=== PATIENT | female | born 2000 | race Caucasian/White ===

== ENCOUNTER 2020-04-13 18:28 | Emergency (ER) | payer OTHER ==
[2020-04-13 18:39] VITALS: BP 110/65
--- NOTE | 2020-04-13 18:41 | ER Document Report ---
ED Medical Screen (RME) - General Chief Complaint: Abdominal Injury Stated Complaint: ABDOMINAL PAIN Time Seen by Provider: 04/13/20 18:32 Notes: Patient is a 20-year-old female who presents to the emergency department with abdominal cramping that radiates down to her vaginal area. Patient states that her last menstrual cycle was November 04. Patient states that she has not had any care due to moving here to [place] in the coronavirus started. Patient states that she has been standing all day and working. Denies any vaginal bleeding. Exam: Noticeably . light armored vehicle officer called the labor and delivery floor. The patient needs a confirmed ultrasound dates before she can go upstairs. I have greeted and performed a rapid initial assessment of this patient. A comprehensive ED assessment and evaluation of the patient, analysis of test results and completion of medical decision making process will be conducted by an additional ED providers. - Related Data Allergies/Adverse Reactions: No Known Allergies Allergy (Unverified 04/13/20 18:32) Physical Exam - Vital signs Vitals: Temp Pulse Resp BP Pulse Ox 98.6 F 104 H 16 110/65 98 04/13/20 18:31 04/13/20 18:31 04/13/20 18:31 04/13/20 18:31 04/13/20 18:31 Course - Vital Signs Vital signs: Temp Pulse Resp BP Pulse Ox 98.6 F 104 H 16 110/65 98 04/13/20 18:33 04/13/20 18:31 04/13/20 18:31 04/13/20 18:31 04/13/20 18:31
[2020-04-13 19:19] LABS: APPEARANCE,URINE CLOUDY; BILIRUBIN,URINE NEGATIVE (NEGATIVE); CALCIUM OXALATE CRYSTALS,URINE RARE /HPF; COLOR,URINE YELLOW; GLUCOSE, URINE NEGATIVE (NEGATIVE); KETONES,URINE NEGATIVE (NEGATIVE); LEUKOCYTE ESTERASE,URINE NEGATIVE (NEGATIVE); NITRITE,URINE NEGATIVE (NEGATIVE); PROTEIN,URINE NEGATIVE (NEGATIVE); URINE SPECIFIC GRAVITY 1.023
[2020-04-13 19:31] LABS: ABSOLUTE EOSINOPHILS # (AUTO) 0.1 10^3/uL (0.0-0.6); ABSOLUTE LYMPHOCYTES (AUTO) 1.7 10^3/uL (0.5-4.7); ABSOLUTE MONOCYTES (AUTO) 0.4 10^3/uL (0.1-1.4); ABSOLUTE NEUT (AUTO) 6.3 10^3/uL (1.7-8.2); BASOPHILS % (AUTO) 0.6 % (0-2); EOSINOPHILS % (AUTO) 0.8 % (0-6); HEMATOCRIT 31.5 % (36.0-47.0); LYMPHOCYTES % (AUTO) 19.6 % (13-45); MEAN CORPUSCULAR HEMOGLOBIN 29.6 pg (27.0-33.4); MEAN CORPUSCULAR HGB CONC 34.9 g/dL (32.0-36.0); MEAN CORPUSCULAR VOLUME 85 fl (80-97); MONOCYTES % (AUTO) 4.7 % (3-13); PLATELET COUNT 138 10^3/uL (150-450); RED BLOOD COUNT 3.71 10^6/uL (3.72-5.28); RED CELL DISTRIBUTION WIDTH 14.1 % (11.5-14.0); SEGMENTED NEUTROPHILS % (AUTO) 74.3 % (42-78); TOTAL CELLS COUNTED % (AUTO) 100 %; WHITE BLOOD COUNT 8.5 10^3/uL (4.0-10.5)
--- NOTE | 2020-04-13 19:33 | RADIOLOGY REPORT (SQ) ---
EXAM DESCRIPTION: U/S OB 14+ TA/1 GEST W/DOPPLER IMAGES COMPLETED DATE/TIME: 04/13/2020 7:21 pm REASON FOR STUDY: abdominal cramping; COMPARISON: None. TECHNIQUE: Static and Dynamic grayscale imaging performed of gravid uterus using transabdominal appr oach. Additional selected color Doppler and spectral images recorded. All stored on PACS. LIMITATIONS: None. FINDINGS: FETUSES SEEN:1 EGA: 23 week 6 day. Calculated using BPD,FL,HC,AC documented on images. Clinical dates 23 weeks 0 da y CICI: 08/04/2020. EFW: 593 grams PERCENTILE: 46%. ANYI: Adequate amount. PLACENTA: Anterior. GRADE: I PRESENTATION: Cephalic. HEART RATE: 145 beats per minute. ANATOMY: A full survey was not performed. No obvious anomalies. MATERNAL ADNEXA: Maternal ovaries not visualized. CERVICAL LENGTH: 2.4 cm. Closed. OTHER: No other significant finding. IMPRESSION: LIVING INTRAUTERINE . ESTIMATED GESTATIONAL AGE 23 WEEK 6 DAY. NO VISUALIZED ANOMALIES. Trimester of : Second trimester - 13 weeks 1 day to 27 weeks 6 days. TECHNICAL DOCUMENTATION: JOB ID: [id number] 2010 [employer]- All Rights Reserved Reading location - IP/workstation name: [email or web address]
--- NOTE | 2020-04-13 19:33 | ER Document Report ---
ED General - General Chief Complaint: Abdominal Cramping Stated Complaint: ABDOMINAL PAIN Time Seen by Provider: 04/13/20 18:32 Notes: 20-year-old female who is a G2, P1 with a last menstrual period on 11/04/2020 presents the emergency department stating that she has been having intermittent cramping lower abdominal pain since about 10:00 last night. Patient states the cramps come on about every 15 minutes and feels like contractions but have not been getting any worse or closer together. States she has had a small amount of yellow vaginal discharge for several days, denies any large gushes of fluid or any blood. Denies any vomiting or fever. Denies any dysuria. Has been taking vitamins, has not had any care. Did not have any complications with her prior , delivered at 41 weeks. - Related Data Allergies/Adverse Reactions: No Known Allergies Allergy (Unverified 04/13/20 18:32) Past Medical History - General Information source: Patient - Social History Smoking Status: Current Every Day Smoker Chew tobacco use (# tins/day): No Frequency of alcohol use: None Drug Abuse: None Family History: None Patient has homicidal ideation: No Review of Systems - Review of Systems Constitutional: No symptoms reported Gastrointestinal: See HPI Female Genitourinary: See HPI -: Yes All other systems reviewed and negative Physical Exam - Vital signs Vitals: Temp Pulse Resp BP Pulse Ox 98.6 F 104 H 16 110/65 98 04/13/20 18:31 04/13/20 18:31 04/13/20 18:31 04/13/20 18:31 04/13/20 18:31 Interpretation: Tachycardic - Notes Notes: GENERAL: Alert, interacts well. No acute distress. HEAD: Normocephalic, atraumatic EYES: Pupils equal, round and reactive to light, extraocular movements intact. ENT: Oral mucosa moist, tongue midline. NECK: Full range of motion, supple, trachea midline. LUNGS: Clear to auscultation bilaterally, no wheezes, rales or rhonchi, no respiratory distress. HEART: Regular rate and rhythm, no murmurs, gallops, rubs. ABDOMEN: Gravid, appropriate for dates, uterus is nontender to palpation, bowel sounds present in all 4 quadrants. EXTREMITIES: Moves all 4 extremities spontaneously, no edema, radial and dorsalis pedis pulses 2/4 bilaterally. No cyanosis. NEUROLOGICAL: Alert and oriented x3, normal speech. PSYCH: Normal mood, normal affect. SKIN: Warm, Dry, normal turgor. Course - Re-evaluation Re-evalutation: 04/13/20 20:00 CBC shows mild anemia with a hemoglobin 11.0, platelets slightly low at 138, chemistries still pending, urinalysis shows small blood but no signs of infection, OB ultrasound shows a 23-week 6-day fetus with a heartbeat of 145 bpm, cervical length is 2.4 cm and it is closed. Discussed patient with labor and delivery, they agree with completing her work- up for lower abdominal pain in on labor and delivery. Patient will be discharged from the emergency department and sent to directly to labor and delivery. - Vital Signs Vital signs: Temp Pulse Resp BP Pulse Ox 98.6 F 104 H 16 110/65 98 04/13/20 18:33 04/13/20 18:31 04/13/20 18:31 04/13/20 18:31 04/13/20 18:31 - Laboratory Result Diagrams: 04/13/20 19:12 04/13/20 19:12 Laboratory results interpreted by me: 04/13/20 04/13/20 19:04 19:12 RBC 3.71 L Hgb 11.0 L Hct 31.5 L RDW 14.1 H Plt Count 138 L Urine Blood SMALL H Urine Urobilinogen 4.0 H Discharge - Discharge Clinical Impression: related bilateral lower abdominal pain, antepartum Condition: Stable Disposition: LABOR CHECK Additional Instructions: Please go directly upstairs to labor and delivery for further evaluation for your lower abdominal pain in .
[2020-04-13 19:52] LABS: ALBUMIN 3.4 g/dL (3.5-5.0); ALKALINE PHOSPHATASE 69 U/L (38-126); ANION GAP 6 (5-19); ASPARTATE AMINO TRANSFERASE 10 U/L (14-36); BILIRUBIN,TOTAL 0.2 mg/dL (0.2-1.3); BLOOD UREA NITROGEN 11 mg/dL (7-20); CALCIUM 8.8 mg/dL (8.4-10.2); CARBON DIOXIDE 26 mmol/L (22-30); CHLORIDE 103 mmol/L (98-107); GLUCOSE 86 mg/dL (75-110); POTASSIUM 3.6 mmol/L (3.6-5.0); TOTAL PROTEIN 6.2 g/dL (6.3-8.2)
== END 2020-04-13 19:58 | disposition admitted as inpatient to this hospital (09) ==
LOC: ER 18:28
DX: O26.892 Other specified pregnancy related conditions, second trimester (principal); R10.31 Right lower quadrant pain; R10.32 Left lower quadrant pain; O99.332 Smoking (tobacco) complicating pregnancy, second trimester; Z3A.23 23 weeks gestation of pregnancy
CPT/HCPCS: 36415; 76805; 80053; 81001; 83690; 84702; 85025; 86900; 86901; 93976; 99284

== ENCOUNTER 2020-04-13 20:07 | Outpatient (CLI) | payer OTHER ==
[2020-04-13] MEDS ORDERED: CEFTRIAXONE INJ 1000 MG VIAL ONE (20:45)
[2020-04-13] MEDS ORDERED: CEFTRIAXONE 1 GM/D5W RTU 1 GM/50 ML RTUPB IV ONE (22:00)
[2020-04-14] MEDS ORDERED: CEFTRIAXONE 1 GM/D5W RTU 1 GM/50 ML RTUPB IV SCH (22:00)
== END 2020-04-13 21:22 | disposition home or self-care (01) ==
LOC: LC 20:07
PROVIDERS: ATTEND Obstetrics & Gynecology Gynecology
DX: Z34.93 Encounter for supervision of normal pregnancy, unspecified, third trimester (principal); Z3A.28 28 weeks gestation of pregnancy
CPT/HCPCS: 59899; J0696

== ENCOUNTER 2020-07-08 20:59 | Outpatient (CLI) | payer OTHER, MEDICAID ==
[2020-07-08 21:53] LABS: APPEARANCE,URINE CLEAR; BILIRUBIN,URINE NEGATIVE (NEGATIVE); COLOR,URINE STRAW; GLUCOSE, URINE NEGATIVE (NEGATIVE); KETONES,URINE NEGATIVE (NEGATIVE); LEUKOCYTE ESTERASE,URINE NEGATIVE (NEGATIVE); NITRITE,URINE NEGATIVE (NEGATIVE); PROTEIN,URINE NEGATIVE (NEGATIVE); URINE SPECIFIC GRAVITY 1.005; UROBILINOGEN,URINE NEGATIVE mg/dL (<2.0)
[2020-07-08 22:05] LABS: BACTERIA (WET MOUNT) 4+ BACTERIA SEEN; EPITHELIALS (WET MOUNT) 3+ EPITHELIALS SEEN; RBCS (WET MOUNT) RARE RBCS SEEN; T.VAGINALIS (WET MOUNT) NO TRICHOMONAS SEEN; WBCS (WET MOUNT) 3+ WBCS SEEN; YEAST (WET MOUNT) NO YEAST SEEN
[2020-07-08 22:16] LABS: URINE AMPHETAMINES SCREEN NEGATIVE; URINE BARBITURATES SCREEN NEGATIVE; URINE BENZODIAZEPINES SCREEN NEGATIVE; URINE COCAINE SCREEN NEGATIVE; URINE MARIJUANA (THC) SCREEN NEGATIVE; URINE METHADONE SCREEN NEGATIVE; URINE PHENCYCLIDINE SCREEN NEGATIVE
[2020-07-08 23:37] LABS: CHLAM PCR NOT DETECTED (NOT DETECT)
--- NOTE | 2020-07-10 07:17 | Non Stress Test Report ---
Non Stress Test Datetime Report Generated by CPN: 07/10/2020 07:17 DEMOGRAPHIC EGA NST: 35.5 INDICATION Indication for Study (NST) Other: lc MONITORING Monitor Explained: Monitor Explained; Test Explained; Patient Verbalized Understanding Time on Monitor: 07/08/2020 21:39 Time off Monitor: 07/10/2020 23:08 NST Duration: 2969 NST INTERVENTIONS NST Interventions: PO Hydration; Reposition Patient Physician Notified NST: Dr Jerry BABY A: [id number] BABY A Movement : Present FHR Baseline : 125 Accelerations : 15X15 Decelerations : None Variability : Moderate 6-25bpm NST Review: Meets Criteria for Reactive NST NST Review and Verified By : Tisha Bellavance RN NST Results: Reactive NST REPORT Report Trigger: Send Report
== END 2020-07-08 23:15 | disposition home or self-care (01) ==
LOC: LC 20:59
PROVIDERS: ATTEND Obstetrics & Gynecology Gynecology
DX: Z34.93 Encounter for supervision of normal pregnancy, unspecified, third trimester (principal)
CPT/HCPCS: 59025; 80307; 81001; 87210; 87491; 87591

== ENCOUNTER 2020-08-02 08:10 | Inpatient (IN) | payer OTHER, MEDICAID ==
[2020-08-02 10:52] LABS: APPEARANCE,URINE SLIGHTLY-CLOUDY; BILIRUBIN,URINE NEGATIVE (NEGATIVE); COLOR,URINE YELLOW; GLUCOSE, URINE NEGATIVE (NEGATIVE); KETONES,URINE NEGATIVE (NEGATIVE); LEUKOCYTE ESTERASE,URINE SMALL (NEGATIVE); NITRITE,URINE NEGATIVE (NEGATIVE); PROTEIN,URINE NEGATIVE (NEGATIVE); URINE SPECIFIC GRAVITY 1.009; UROBILINOGEN,URINE NEGATIVE mg/dL (<2.0)
[2020-08-02 11:08] LABS: URINE AMPHETAMINES SCREEN NEGATIVE; URINE BARBITURATES SCREEN NEGATIVE; URINE BENZODIAZEPINES SCREEN NEGATIVE; URINE COCAINE SCREEN NEGATIVE; URINE MARIJUANA (THC) SCREEN NEGATIVE; URINE METHADONE SCREEN NEGATIVE; URINE PHENCYCLIDINE SCREEN NEGATIVE
[2020-08-02] MEDS: RINGERS SOLUTION,LACTATED 1,000 ML IV PRN ×2 (11:45→13:52)
[2020-08-02] MEDS ORDERED: OXYTOCIN/0.9 % SODIUM CHLORIDE 30 UNIT/500 ML RTUINJ ONE (12:12)
[2020-08-02] MEDS ORDERED: MISOPROSTOL 0.2 MG TABLET ONE (12:12)
[2020-08-02] MEDS ORDERED: LIDOCAINE 1% INJ-PF (10 MG/ML) 30 ML SDV ONE (12:12)
[2020-08-02] MEDS ORDERED: OXYTOCIN 10 UNIT/ML VIAL ONE (12:12)
--- NOTE | 2020-08-02 12:22 | Admission Physical ---
Datetime Report Generated by CPN: 08/02/2020 12:22 CURRENT ADMISSION Chief Complaint: Uterine Contractions Indication for Induction: Not Applicable Admit Impression : Term, Intrauterine ; Active Labor Admit Plan: Admit to Unit; Initiate Labor Protocol ALLERGIES Medication Allergies: No Medication Allergies: No Known Allergies (08/02/2020) Latex: Unknown Food Allergies: no Environmental Allergies: no OBSTETRICAL HISTORY EDC: 08/07/2020 00:00 : 2 Para: 1 Term: 1 : 0 SAB: 0 IAB: 0 Ectopic: 0 Livin Cesareans: 0 VBACs: 0 Multiple Births: 0 Gestational Diabetes: Yes Rh Sensitization: No Incompetent Cervix: No TABATHA: No Infertility: No ART Treatment: No Uterine Anomaly: No IUGR: No Hx Previous C/S: No Macrosomia: No Hx Loss/Stillborn: No PIH: No Hx : No Placenta Previa/Abruption: No Depression/PP Depression: Yes PTL/PROM: No Post Hemorrhage: No Current Procedures: Ultrasound; NST Obstetrical History Comments: G1- 2014, , PPD G2- Current, GDM SEE RECORDS Alcohol: No Marijuana : No Cocaine: No Other Illicit Drugs: No Cigarette Frequency: < 5 per day Advised to Stop: Yes MEDICAL HISTORY Diabetes: No Diabetes Type: Gestational Diabetes Blood Transfusion: No Pulmonary Disease (Asthma, TB): No Breast Disease: No Hypertension: No Dry Chain Puller Surgery: No Heart Disease: No Hosp/Surgery: Yes Autoimmune Disorder: No Anesthetic Complications: No Kidney Disease: No Abnormal Pap Smear: No Neuro/Epilepsy: No Psychiatric Disorders: No Other Medical Diseases: No Hepatitis/Liver Disease: No Significant Family History: No Varicosities/Phlebitis: No Trauma/Violence : No Thyroid Dysfunction: No Medical History Comments: Childbirth PPD and hospitalization INFECTIOUS HISTORY Gonorrhea: No Genital Herpes: No Chlamydia: No Tuberculosis: No Syphilis: No Hepatitis: No HIV/AIDS Exposure: No Rash or Viral Illness: No HPV: No PHYSICAL EXAM General: Normal HEENT: Normal Neurologic: Normal Thyroid: Normal Heart: Normal Lungs: Normal Breast: Deferred Back: Normal Abdomen: Normal Genitourinary Exam: Normal Extremities: Normal DTRs: Normal Pelvic Type: Adequate Vital Signs: Reviewed VAGINAL EXAM Dilatation: 5 Effacement: 70 Station: -3 MEMBRANES Pooling: Negative Membranes: Intact FETUS A EGA: 39.2 Monitoring: External US FHR- Baseline: 120 Variability: Moderate 6-25bpm FHR Category: Category I Estimated Weight (gm): 3700 Presentation: Vertex Admit Comment: Admit for labor PLANS FOR LABOR AND DELIVERY Labor and Delivery: None Pain Management: Natural; Medications; Epidural Feeding Preference: Both Benefit of Breast Feed Discussed: Yes Circumcision: Yes INFORMED CONSENT Signature: with User ID: [email or web address]
[2020-08-02 12:32] LABS: ABSOLUTE BASOPHILS # (AUTO) 0.1 10^3/uL (0.0-0.2); ABSOLUTE LYMPHOCYTES (AUTO) 1.6 10^3/uL (0.5-4.7); ABSOLUTE MONOCYTES (AUTO) 0.5 10^3/uL (0.1-1.4); ABSOLUTE NEUT (AUTO) 7.7 10^3/uL (1.7-8.2); BASOPHILS % (AUTO) 0.5 % (0-2); EOSINOPHILS % (AUTO) 0.4 % (0-6); HEMATOCRIT 33.3 % (36.0-47.0); HEMOGLOBIN 11.1 g/dL (12.0-15.5); LYMPHOCYTES % (AUTO) 16.4 % (13-45); MEAN CORPUSCULAR HEMOGLOBIN 26.5 pg (27.0-33.4); MEAN CORPUSCULAR HGB CONC 33.4 g/dL (32.0-36.0); MEAN CORPUSCULAR VOLUME 79 fl (80-97); MONOCYTES % (AUTO) 5.3 % (3-13); PLATELET COUNT 118 10^3/uL (150-450); RED CELL DISTRIBUTION WIDTH 15.5 % (11.5-14.0); SEGMENTED NEUTROPHILS % (AUTO) 77.4 % (42-78); TOTAL CELLS COUNTED % (AUTO) 100 %; WHITE BLOOD COUNT 9.9 10^3/uL (4.0-10.5)
[2020-08-02] MEDS ORDERED: EPHEDRINE SULFATE INJ 50 MG/1 ML AMPULE ONE (14:03)
[2020-08-02] MEDS ORDERED: FENTANYL/BUPIVACAINE/NS/PF 300 MCG/150 ML RTUINJ EPI ONE (14:04)
[2020-08-02] MEDS ORDERED: ROPIVACAINE HCL 0.2% INJ/PF (2 MG/ML) 20 ML SDV ONE (14:04)
--- NOTE | 2020-08-02 16:06 | Warning Signs in Babies ---
VOD Warning Signs Datetime Report Generated by N: 08/02/2020 16:05 VOD#608 -Warning Signs in Babies: Viewed with Parent(s)/Family (08/02/2020 16:05:Dylan Garces RN)
--- NOTE | 2020-08-02 16:07 | Warning Signs in Babies ---
VOD Warning Signs Datetime Report Generated by [facility]: 08/02/2020 16:07 VOD#608 -Warning Signs in Babies: Viewed with Parent(s)/Family (08/02/2020 16:05:Dylan Garces RN)
[2020-08-02] MEDS ORDERED: PROMETHAZINE HCL INJ 25 MG/1 ML VIAL IV PRN (20:02)
[2020-08-02] MEDS ORDERED: DIBUCAINE 1% OINTMENT 28 GM TP PRN (20:02)
[2020-08-02] MEDS ORDERED: PROMETHAZINE HCL 25 MG TABLET PO PRN (20:02)
[2020-08-02] MEDS ORDERED: GLYCERIN/WITCH HAZEL LEAF 1 EACH MED..WIPE TP PRN (20:02)
[2020-08-02] MEDS ORDERED: PROMETHAZINE HCL 25 MG SUPP.RECT PR PRN (20:02)
[2020-08-02] MEDS ORDERED: ACETAMINOPHEN 650 MG SUPP.RECT PR PRN (20:02)
[2020-08-02] MEDS ORDERED: BENZOCAINE/MENTHOL AEROSOL SPRAY 56 ML TOP PRN (20:02)
[2020-08-02] MEDS ORDERED: DIPHENHYDRAMINE HCL 25 MG CAPSULE PO PRN (20:02)
[2020-08-02] MEDS ORDERED: MEASLES,MUMPS&RUBELLA VACC/PF 0.5 ML VIAL SUBCUT PRN (20:02)
[2020-08-02] MEDS ORDERED: MAGNESIUM HYDROXIDE SUSP 30 ML UDCUP PO PRN (20:02)
[2020-08-02] MEDS ORDERED: DIPH/PERTUSS(ACELL)/TETANUS VAC/PF 0.5 ML SYR (>=10YO) IM PRN (20:02)
[2020-08-02] MEDS ORDERED: ZOLPIDEM TARTRATE 5 MG TABLET PO PRN (20:02)
[2020-08-02] MEDS ORDERED: NA PHOS,M-B/NA PHOS,DI-BA (ADULT) 133 ML ENEMA PR PRN (20:02)
[2020-08-02] MEDS ORDERED: OXYTOCIN/0.9 % SODIUM CHLORIDE 30 UNIT/500 ML RTUINJ IV PRN (20:02)
[2020-08-02] MEDS ORDERED: PSEUDOEPHEDRINE HCL 30 MG TABLET PO PRN (20:02)
[2020-08-02] MEDS ORDERED: ACETAMINOPHEN WITH CODEINE #3 TABLET PO PRN (20:02)
--- NOTE | 2020-08-02 21:31 | Delivery Summary ---
Del Sum A-C Datetime Report Generated by CPN: 08/02/2020 21:30 DELIVERY PERSONNEL DELIVERY PERSONNEL: [id number] Delivery Doctor:: Porsha Cerda MD Labor and Delivery Nurse:: Dylan Garces RNelectrical discharge machine operator Nurse:: Lucille Renee RN Nursery Nurse:: Katia Li RN Manager Clinic/MAGNETIC RESONANCE TECHNOLOGIST: ElizabethST Hermelindo Manager Clinic/MAGNETIC RESONANCE TECHNOLOGIST: Rachelher Gutierrez ST MATERNAL INFORMATION Delivery Anesthesia: Epidural Medications After Delivery: Pitocin 30 Units in 500ml NS/D5W Estimated Blood Loss (ml): 250 Delivery QBL: 50 Maternal Complications: None LABOR SUMMARY EDC: 08/07/2020 00:00 No. Babies in Womb: 1 Attempted: No Labor Anesthesia: Epidural LABOR INFORMATION Reason for Induction: Not Applicable Onset of Labor: 08/02/2020 11:14 Complete Dilatation: 08/02/2020 19:04 Oxytocin: N/A Group B Beta Strep: negative Antibiotics # of Doses: 0 Steroids Given: None Reason Steroids Not Administered: Not Applicable MEMBRANES Membranes Rupture Method: Artificial Rupture of Membranes: 08/02/2020 16:31 Length of Rupture (hr): 3.27 Amniotic Fluid Color: Clear Amniotic Fluid Amount: Moderate Amniotic Fluid Odor: None STAGES OF LABOR Stage 1 hr: 7 Stage 1 min: 50 Stage 2 hr: 0 Stage 2 min: 43 Stage 3 hr: 0 Stage 3 min: 8 Total Time in Labor hr: 8 Total Time in Labor min: 41 VAGINAL DELIVERY Episiotomy: None Laceration #1: None Laceration Extension #1: N/A Laceration #2: None Laceration Extension #2: N/A Laceration #3: None Laceration Extension #3: N/A Laceration Repair: Not Applicable Sponge Count Correct: N/A Sharps Count Correct: N/A CSECTION DELIVERY Primary Indication: N/A Secondary Indication: N/A CSection Urgency: N/A CSection Incidence: N/A Labor: N/A Elective: N/A CSection Incision: N/A BABY A INFORMATION Infant Delivery Date/Time: 08/02/2020 19:47 Method of Delivery: Vaginal Nurse Controlled Delivery: No Born in Route : No : N/A Forceps: N/A Vacuum Extraction: N/A Shoulder Dystocia : No PRESENTATION/POSITION BABY A Presentation: Cephalic Cephalic Presentation: Vertex Vertex Position: Left Occipital Anterior Breech Presentation: N/A PLACENTA INFORMATION BABY A Placenta Delivery Time : 08/02/2020 19:55 Placenta Method of Delivery: Spontaneous Placenta Status: Delivered SCORES BABY A Heart Rate 1 min: >100 bpm Resp Effort 1 min: Good Cry Reflex Irritability 1 min: Cough or Sneeze or Pulls Away Muscle Tone 1 min: Active Motion Color 1 min: Blue/Pale Resuscitation Effort 1 min: Tactile Stimulation SCORE 1 MIN: 8 Heart Rate 5 min: >100 bpm Resp Effort 5 min: Good Cry Reflex Irritability 5 min: Cough or Sneeze or Pulls Away Muscle Tone 5 min: Active Motion Color 5 min: Body Peterman, Extremities Blue Resuscitation Effort 5 min: N/A SCORE 5 MIN: 9 INFANT INFORMATION BABY A Gestational Age at Delivery: 39.2 Gestational Status: Full Term- 39- 40.6 Weeks Outcome : Liveborn Condition : Stable Sex: Male IDENTIFICATION BABY A Verification Date/Time: 08/02/2020 20:46 ID Band Number: [id number] Mother's Name Verified: Yes RN Verifying : Fran Ziegler RN/A. Omarman RN WEIGHT/LENGTH BABY A Infant Birthweight (gm): 3575 Infant Weight (lb): 7 Infant Weight (oz): 14 Length (in): 20.00 Length (cm): 50.80 CORD INFORMATION BABY A No. Cord Vessels: 3 Nuchal Cord : N/A Cord Blood Taken: Yes-For Eval (Mom's Blood Type - or O+) Suction: None ASSESSMENT BABY A Complications: None Physical Findings at Delivery: Other Physical Findings- Other: see nursery nurse assessment Respirations: Appears Normal Skin to Skin: Yes Crossbar Switch Adjuster/ALS Called : No Care By: RiteshBharath Jen RN Transferred To: Remains with Mother BABY B INFORMATION : N/A SIGNATURES Signature: with User ID: [email or web address]
--- NOTE | 2020-08-02 21:31 | Birth Certificate Data ---
Cert Data Datetime Report Generated by CPN: 08/02/2020 21:30 CERTIFICATE DATA 47a. Care: No (07/08/2020 21:34:Cecille Stuart RN) 47b. Date of First Visit: 04/17/2020 00:00 (07/08/2020 21:34:Cecille Stuart RN) 47c. Date of Last Visit: 07/18/2020 00:00 (07/08/2020 21:34:Cecille Stuart RN) 47d. Number of Visits: 7 (07/08/2020 21:34:Cecille Stuart RN) 48a. Number of Prev Live Births: 1 (07/08/2020 21:34:Dylan Garces RN) 48b. Now Livin (07/08/2020 21:34:JOE Toscano) 48c. Live Births Now : 0 (07/08/2020 21:34:QS system process) 48e. Losses: 0 (07/08/2020 21:34:Dylan Garces RN) RISK FACTORS IN THIS 49a. Diabetes: No (07/08/2020 21:34:Dylan Garces RN) Type of Diabetes: Gestational Diabetes (07/08/2020 21:34:Dylan Garces RN) 49b. Hypertension: No (07/08/2020 21:34:Dylan Garces RN) 49c. Previous Births: 0 (07/08/2020 21:34:JOE Toscano) 49d. Stillborns: No (07/08/2020 21:34:Dylan Garces RN) 49d. IUGR: No (07/08/2020 21:34:Dylan Garecs RN) 49e. Infertility Treatment: No (07/08/2020 21:34:Dylan Garces RN) 49f. Previous Cesareans: 0 (07/08/2020 21:34:Dylan Garces RN) Mother's Height 50b. Height Inches: 61 (08/02/2020 08:24:QS system process) Mother's Weight 51a. Pre- Weight (lbs): 131 (07/08/2020 21:34:Cecille Stuart RN) 51b. Weight at Delivery (lbs): 156 (08/02/2020 08:24:QS system process) 52. Dt Last Normal Menses Began: 11/01/2019 00:00 (07/08/2020 21:34:JOE Toscano) Infections Present/Treated 53a. Gonorrhea: No (07/08/2020 21:34:Dylan Garces RN) Results this Hospital Visit : Negative (07/08/2020 21:34:JOE Toscano) 53b. Syphilis: No (07/08/2020 21:34:Dylan Garces RN) 53c. Chlamydia: No (07/08/2020 21:34:Dylan Garces RN) Results this Hospital Visit: Negative (07/08/2020 21:34:JOE Toscano) 53d. Hepatitis B: No (07/08/2020 21:34:Dylan Garces RN) Results this Hospital Visit: Negative (07/08/2020 21:34:JOE Toscano) 53e. Hepatitis C: Negative (07/08/2020 21:34:Dylan Garces RN) 53h. Mother Tested for HBsAG: Yes (07/08/2020 21:34:Dylan Garces RN) 53i. Date Tested: 04/17/2020 00:00 (07/08/2020 21:34:Dylan Garces RN) 53j. Test Result: Negative (07/08/2020 21:34:JOE Toscano) Obstetric Procedures 54a, b, c. Obstetric Procedures: Ultrasound; NST (07/08/2020 21:34:Dylan Garces RN) Cigarette Smoking 55a. Packs: 1 (07/08/2020 21:34:Dylan Garces RN) 55b. 1st Trimester of Preg- Ci (07/08/2020 21:34:Dylan Garces RN) 55b. Packs: 0 (07/08/2020 21:34:Dylan Garces RN) 55c. 2nd Trimester of Preg- Ci (07/08/2020 21:34:Dylan Garces RN) 55c. Packs: 0 (07/08/2020 21:34:Dylan Garces RN) 55d. 3rd Trimester of Preg- Ci (07/08/2020 21:34:Dylan Garces RN) 55d. Packs: 0 (07/08/2020 21:34:Dylan Garces RN) Onset of Labor 56a. PROM >12 Hrs: 3.27 (07/08/2020 21:34:QS system process) 56b. Precipitous Labor <3 Hrs: 8 (07/08/2020 21:34:QS system process) 56c. Prolonged Labor > 20 Hrs: 8 (07/08/2020 21:34:QS system process) 57a. Induction of Labor: N/A (07/08/2020 21:34:Cecille Stuart RN) 57c. Non-Vertex Presentation A: Vertex (07/08/2020 21:34:Dylan Garces RN) 57d. Steroids - Lung Mat: None (07/08/2020 21:34:Porsha Cerda MD ([facility])) 57d. Steroids - Lung Mat: Not Applicable (07/08/2020 21:34:Porsha Cerda MD ([facility])) 57g. Moderate/Heavy Meconium: Clear (08/02/2020 16:31:Dylan Garces RN) 57h. Intolerance of Labor: N/A (07/08/2020 21:34:Cecille Stuart RN) : N/A (07/08/2020 21:34:Cecille Stuart RN) 57i. Epidural/Spinal Anesthesia: Epidural (07/08/2020 21:34:Cecille Stuart RN) Method of Delivery 58a. Forceps - Unsuccessful A: N/A (07/08/2020 21:34:Dylan Garces RN) 58b. Vacuum - Unsuccessful A: N/A (07/08/2020 21:34:Dylan Garces RN) 58c. Presentation at 58c. Presentation at - A : Vertex (07/08/2020 21:34:Dylan Garces RN) 58c. Presentation at - A : N/A (07/08/2020 21:34:Dylan Garces RN) 58c. Presentation at - A : Cephalic (07/08/2020 21:34:Dylan Garces RN) Final Route and Method of Del 58d. Baby A Route/Delivery: Vaginal (08/02/2020 19:47:Dylan Garces RN) 58e. Trial of Labor Attempted: No (07/08/2020 21:34:Cecille Stuart RN) 58e. Trial of Labor Attempted A: N/A (07/08/2020 21:34:Dylan Garces RN) 58e. Trial of Labor Attempted B: N/A (07/08/2020 21:34:Cecille Stuart RN) Maternal Morbidity 59b. 3rd or 4th Degree Lacs: None (07/08/2020 21:34:Cecille Stuart RN) 59b. 3rd or 4th Degree Lacs: N/A (07/08/2020 21:34:Dylan Garces RN) Birthweight Baby A: 3575 (07/08/2020 21:34:Marcella Ziegler RN) 60a. Pounds : 7 (07/08/2020 21:34:QS system process) 60b. Ounces: 14 (07/08/2020 21:34:QS system process) 61. GA at Delivery Baby A: 39.2 (07/08/2020 21:34:Dylan Garces RN) : Full Term- 39- 40.6 Weeks (07/08/2020 21:34:QS system process) 62a. 5 Minute Baby A: 9 (07/08/2020 21:34:QS system process)
[2020-08-02] MEDS: FAMOTIDINE 20 MG TABLET PO SCH (23:54)
[2020-08-02] MEDS: IBUPROFEN 800 MG TABLET PO SCH (23:54)
[2020-08-03] MEDS: IBUPROFEN 800 MG TABLET PO SCH ×3 (06:35→21:36)
[2020-08-03] MEDS: ACETAMINOPHEN WITH CODEINE #3 TABLET PO PRN ×2 (06:44→19:49)
[2020-08-03 07:36] LABS: MEAN CORPUSCULAR HEMOGLOBIN 26.4 pg (27.0-33.4); MEAN CORPUSCULAR HGB CONC 33.4 g/dL (32.0-36.0); MEAN CORPUSCULAR VOLUME 79 fl (80-97); PLATELET COUNT 105 10^3/uL (150-450); WHITE BLOOD COUNT 11.1 10^3/uL (4.0-10.5)
[2020-08-03] MEDS: SENNOSIDES/DOCUSATE 8.6-50 MG 1 EACH TABLET PO SCH (09:26)
[2020-08-03] MEDS: FERROUS SULFATE 325 MG TABLET PO SCH ×2 (09:26→18:21)
[2020-08-03] MEDS: DOCUSATE SODIUM 100 MG CAPSULE PO SCH ×2 (09:26→18:21)
[2020-08-03] MEDS: FAMOTIDINE 20 MG TABLET PO SCH ×2 (09:26→21:36)
[2020-08-03] MEDS: PRENATAL VITAMIN W DHA CAPSULE PO SCH (09:26)
--- NOTE | 2020-08-03 11:30 | PDOC PROGRESS REPORT ---
Subjective-OB Progress Note for:: 08/03/20 Subjective: Pt resting, reports light bleeding, reg diet and denies difficulty voiding. Physical Exam (OB) Vital Signs: Temp Pulse Resp BP Pulse Ox 98.0 F 83 18 97/64 L 99 08/03/20 09:53 08/03/20 07:30 08/03/20 07:30 08/03/20 07:30 08/03/20 07:30 Intake & Output 08/02/20 08/03/20 08/04/20 06:59 06:59 06:59 Intake Total 1265 Balance 1265 Weight 71.4 kg - Maternal Morbidity 59. Maternal Morbidity (serious complications experinced by the mother associated with labor and delivery: None of the above - Lochia Lochia Amount: Small 10-25 ml Lochia Color: Rubra/Red - Abdomen Description: Soft Hernia Present: No Fundal Description: Firm, Midline Fundal Height: u/3 - u/4 Objective-Diagnostic Laboratory: 08/03/20 06:41 08/02/20 08/02/20 08/03/20 12:24 12:24 06:41 WBC 9.9 11.1 H RBC 4.20 3.80 Hgb 11.1 L 10.0 L Hct 33.3 L 30.0 L MCV 79 L 79 L MCH 26.5 L 26.4 L MCHC 33.4 33.4 RDW 15.5 H 16.0 H Plt Count 118 L 105 L Seg Neutrophils % 77.4 Blood Type O POSITIVE Antibody Screen NEGATIVE Assessment and Plan(PN) - Assessment and Plan (1) (spontaneous vaginal delivery) Is this a current diagnosis for this admission?: Yes (2) Active labor at term Is this a current diagnosis for this admission?: Yes - Time Spent with Patient Time with patient: Less than 15 minutes Medications reviewed and adjusted accordingly: Yes - Disposition Anticipated Discharge Disposition: Home, Self Care Anticipated Discharge Timeframe: within 24 hours
[2020-08-04] MEDS: IBUPROFEN 800 MG TABLET PO SCH ×2 (05:14→13:19)
[2020-08-04 07:36] VITALS: BP 107/69
[2020-08-04] MEDS: SENNOSIDES/DOCUSATE 8.6-50 MG 1 EACH TABLET PO SCH (09:17)
[2020-08-04] MEDS: FAMOTIDINE 20 MG TABLET PO SCH (09:17)
[2020-08-04] MEDS: FERROUS SULFATE 325 MG TABLET PO SCH (09:17)
[2020-08-04] MEDS: PRENATAL VITAMIN W DHA CAPSULE PO SCH (09:17)
[2020-08-04] MEDS: DOCUSATE SODIUM 100 MG CAPSULE PO SCH (09:17)
--- NOTE | 2020-08-04 09:58 | PDOC PROGRESS REPORT ---
Subjective-OB Progress Note for:: 08/04/20 Subjective: Doing well, no c/o, ready to go home, bottle feeding, encouraged to wear bra, eating and drinking, ambulating Physical Exam (OB) Vital Signs: Temp Pulse Resp BP Pulse Ox 98.4 F 76 16 107/69 100 08/04/20 07:30 08/04/20 07:16 08/04/20 07:16 08/04/20 07:16 08/04/20 07:16 Intake & Output 08/03/20 08/04/20 08/05/20 06:59 06:59 06:59 Intake Total 1265 240 Balance 1265 240 Weight 71.4 kg - PIH/Pre-Eclampsia DTR's: 1 + Clonus: Negative Headache: Absent Epigastric Pain: No Visual Changes: No - Maternal Morbidity 59. Maternal Morbidity (serious complications experinced by the mother associa gayle with labor and delivery: None of the above - Lochia Lochia Amount: Scant < 10 ml Lochia Color: Rubra/Red - Abdomen Description: Soft Hernia Present: No Fundal Description: Firm, Midline Fundal Height: u/u - u/2 Objective-Diagnostic Laboratory: 08/03/20 06:41 Assessment and Plan(PN) - Assessment and Plan (1) (spontaneous vaginal delivery) Is this a current diagnosis for this admission?: Yes (2) Active labor at term Is this a current diagnosis for this admission?: Yes - Time Spent with Patient Time with patient: Less than 15 minutes Medications reviewed and adjusted accordingly: Yes - Disposition Anticipated Discharge Disposition: Home, Self Care Anticipated Discharge Timeframe: within 24 hours
--- NOTE | 2020-08-04 10:01 | PDOC DISCHARGE SUMMARY ---
Impression - Admit/DC Date/PCP Admission Date/Primary Care Provider: 08/02/20 11:34 Discharge Date: 08/04/20 - Discharge Diagnosis (1) (spontaneous vaginal delivery) Is this a current diagnosis for this admission?: Yes (2) Active labor at term Is this a current diagnosis for this admission?: Yes - Additional Information Discharge Diet: As Tolerated Referrals: WILFRID HARRIS MD [ACTIVE STAFF] - Home Medications: Vit,Calc76/Iron/Folic [Prenatabs Rx Tablet] 1 tab PO DAILY 04/13/20 HPI Gestational Age: 39.2 Reason(s) for Admission: Onset of Labor Procedures: Ultrasound Intrapartum Procedure(s): Spontaneous Vaginal Delivery Hospital Course Hospital Course: routine/normal 59. Maternal Morbidity (serious complications experinced by the mother associated with labor and delivery: None of the above Results Laboratory Results: WBC 11.1 10^3/uL (4.0-10.5) H 08/03/20 06:41 RBC 3.80 10^6/uL (3.72-5.28) 08/03/20 06:41 Hgb 10.0 g/dL (12.0-15.5) L 08/03/20 06:41 Hct 30.0 % (36.0-47.0) L 08/03/20 06:41 MCV 79 fl (80-97) L 08/03/20 06:41 MCH 26.4 pg (27.0-33.4) L 08/03/20 06:41 MCHC 33.4 g/dL (32.0-36.0) 08/03/20 06:41 RDW 16.0 % (11.5-14.0) H 08/03/20 06:41 Plt Count 105 10^3/uL (150-450) L 08/03/20 06:41 Lymph % (Auto) 16.4 % (13-45) 08/02/20 12:24 [place] % (Auto) 5.3 % (3-13) 08/02/20 12:24 Eos % (Auto) 0.4 % (0-6) 08/02/20 12:24 Baso % (Auto) 0.5 % (0-2) 08/02/20 12:24 Absolute Neuts (auto) 7.7 10^3/uL (1.7-8.2) 08/02/20 12:24 Absolute Lymphs (auto) 1.6 10^3/uL (0.5-4.7) 08/02/20 12:24 Absolute Monos (auto) 0.5 10^3/uL (0.1-1.4) 08/02/20 12:24 Absolute Eos (auto) 0.0 10^3/uL (0.0-0.6) 08/02/20 12:24 Absolute Basos (auto) 0.1 10^3/uL (0.0-0.2) 08/02/20 12:24 Seg Neutrophils % 77.4 % (42-78) 08/02/20 12:24 Urine Color YELLOW 08/02/20 08:30 Urine Appearance SLIGHTLY-CLOUDY 08/02/20 08:30 Urine pH 7.0 (5.0-9.0) 08/02/20 08:30 Ur Specific [place] 1.009 08/02/20 08:30 Urine Protein NEGATIVE mg/dL (NEGATIVE) 08/02/20 08:30 Urine Glucose (UA) NEGATIVE mg/dL (NEGATIVE) 08/02/20 08:30 Urine Ketones NEGATIVE mg/dL (NEGATIVE) 08/02/20 08:30 Urine Blood NEGATIVE (NEGATIVE) 08/02/20 08:30 Urine Nitrite NEGATIVE (NEGATIVE) 08/02/20 08:30 Urine Bilirubin NEGATIVE (NEGATIVE) 08/02/20 08:30 Urine Urobilinogen NEGATIVE mg/dL (<2.0) 08/02/20 08:30 Ur Leukocyte Esterase SMALL (NEGATIVE) H 08/02/20 08:30 Urine Ascorbic Acid NEGATIVE (NEGATIVE) 08/02/20 08:30 Membranes Rupture NEGATIVE (NEGATIVE) 08/02/20 08:45 Urine Opiates Screen NEGATIVE 08/02/20 08:30 Urine Methadone Screen NEGATIVE 08/02/20 08:30 Ur Barbiturates Screen NEGATIVE 08/02/20 08:30 Ur Phencyclidine Scrn NEGATIVE 08/02/20 08:30 Ur Amphetamines Screen NEGATIVE 08/02/20 08:30 U Benzodiazepines Scrn NEGATIVE 08/02/20 08:30 Urine Cocaine Screen NEGATIVE 08/02/20 08:30 U Marijuana (THC) Screen NEGATIVE 08/02/20 08:30 RPR NONREACTIVE (NONREACTIVE) 08/02/20 12:24 Blood Type O POSITIVE 08/02/20 12:24 Antibody Screen NEGATIVE 08/02/20 12:24 Plan Health Concerns: routine, GDM, check blood sugars Plan of Treatment: discharge home, check BS 3 x weeks, rev S&S to report Goals: no complications Time Spent: Less than 30 Minutes
== END 2020-08-04 13:25 | disposition home or self-care (01) | DRG 807 ==
LOC: LC 08:10 → LR 11:34 → 2S 22:10
PROVIDERS: ADMIT Obstetrics & Gynecology; ATTEND Obstetrics & Gynecology
PROC: 10E0XZZ Delivery of Products of Conception, External Approach (ICD-10-PCS; principal; 2020-08-02)
DX: O24.429 Gestational diabetes mellitus in childbirth, unspecified control (principal); Z37.0 Single live birth; O99.334 Smoking (tobacco) complicating childbirth; F17.210 Nicotine dependence, cigarettes, uncomplicated; Z3A.39 39 weeks gestation of pregnancy
CPT/HCPCS: 1967; 36415; 80307; 81005; 84112; 85025; 85027; 86592; 86850; 86900; 86901; 94760; J2590; J2795; J3010; J3490